=== PATIENT | female | born 1985 | race Caucasian/White ===

== ENCOUNTER 2022-01-31 00:39 | Emergency (ER) | payer OTHER ==
[2022-01-31 01:08] VITALS: BP 119/73; PULSE 84; RESP 17; TEMP 98.8; BMI 23.1
[2022-01-31] MEDS ORDERED: ACETAMINOPHEN 500 MG TABLET (FP) PO ONE (01:49)
[2022-01-31] MEDS ORDERED: ACETAMINOPHEN 325 MG TABLET (FP) ONE (01:57)
== END 2022-01-31 03:54 | disposition home or self-care (01) ==
LOC: JER 00:39
DX: M79.642 Pain in left hand (principal)
CPT/HCPCS: 73130-TC-LT-FY; 99284-25